=== PATIENT | male | born 1970 | race Caucasian/White ===

== ENCOUNTER 2022-05-09 11:57 | Emergency (ER) | payer SELFPAY ==
--- NOTE | ~2022-05-09 | XR_ITS ---
XR chest 2V DATE: 05/09/2022 12:24 INDICATION: Left anterior chest pain for 2 weeks. Chronic smoker. TECHNIQUE: 2 views COMPARISON: None FINDINGS: Bilateral hyperinflation with flattening of the diaphragm, consistent with COPD. No pulmona ry infiltrate or consolidation, pleural effusion or pulmonary vascular congestion or pneumothorax. Normal heart size. Mild aortic arch calcification. No hilar or mediastinal enlargement. Osteopenia. There is anterior wedging and loss of height of T8-1 lesser extent T9, chronic in appeara nce. Mild degenerative spurring of the thoracic spine. IMPRESSION: Bilateral hyperinflation consistent with COPD Reviewed, dictated and finalized at location A.
--- NOTE | 2022-05-09 11:58 | ED.URI ---
HPI - URI/Sore Throat General Chief Complaint: Chest Pain Stated Complaint: Chest Congestion Time Seen by Provider: 05/09/22 11:59 Source: patient and RN notes reviewed History of Present Illness HPI Narrative: Patient is a 51-year-old male who presents the urgent care with complaints of left-sided chest pain. Patient states its worse when he wakes up in the mornings. States that he is a chronic smoker and does have a slight cough but denies of any new cough, fever, nausea, vomiting or other upper respiratory complaints. Patient denies any shortness of breath but states that he does have difficulty taking deep breath at times. Patient states that he has this every year and he is treated with a Z-Christian, albuterol and steroids . Patient has not taken anything [id number] for his symptoms. Denies of any chronic heart conditions. No other acute complaints. No acute distress noted. Patient aware of the plan of care. Some parts of this dictation were generated by voice recognition software and may contain typographical and/or grammatical inaccuracies. Related Data Allergies Allergy/AdvReac Type Severity Reaction Status Date / Time No Known Allergies Allergy Verified 05/09/22 12:14 Review of Systems Review of Systems: CONSTITUTIONAL: Denies fever, chills, or sweats. EYES: Denies visual changes, redness, or discharge. ENT: Denies rhinorrhea, congestion, sore throat, or otalgia. CARDIOVASCULAR: Reports of left-sided chest pain RESPIRATORY: Denies cough or dyspnea. GASTROINTESTINAL: Denies abdominal pain, nausea, vomiting, or diarrhea. GENITOURINARY: Denies dysuria or hematuria. SKIN: Denies rash or itching. MUSCULOSKELETAL: Denies back pain, joint pain, or myalgia. NEUROLOGIC: Denies headache, numbness, or weakness. All other systems reviewed are negative, except as documented in HPI. PMFSH Comments At the time of my signature, I reviewed and agree with the nursing past medical, surgical, social, and family history. There is no relevant family history pertinent to the patient complaint. Exam Narrative: GENERAL: This is a well-nourished, well-developed patient, in no apparent distress. HEAD: normocephalic, atraumatic. EYES: PERRL. Sclera clear/white. Vision is grossly intact. EARS: External ears normal, auditory canals clear and without drainage, TMs normal without perforation. Hearing grossly intact. NOSE: External nose normal with no obvious nasal discharge, nares without redness, no rhinorrhea. THROAT: Mucous membranes moist, posterior pharynx clear. Moderate postnasal drainage NECK: Neck supple CARDIOVASCULAR: Regular rate and rhythm without murmurs, gallops, or rubs. RESPIRATORY: Crackles without wheezes, rales, or rhonchi. SKIN: warm, intact with no suspicious lesions or rash, good texture and turgor. NEURO: awake, alert, and oriented to person, place and time. There were no obvious focal neurologic abnormalities. EXTREMITIES: No clubbing, cyanosis, or edema. Course Course Level of Care: Express Care Visit Vital Signs Vital signs: Vital Signs Temperature 98.5 F 05/09/22 12:08 Pulse Rate 96 05/09/22 12:08 Respiratory Rate 20 05/09/22 12:08 Blood Pressure 161/108 H 05/09/22 12:08 Pulse Oximetry 98 05/09/22 12:08 Oxygen Delivery Room Air 05/09/22 12:08 Temperature 98.5 F 05/09/22 12:17 Pulse Rate 96 05/09/22 12:17 Respiratory Rate 20 05/09/22 12:17 Blood Pressure 161/108 H 05/09/22 12:17 Pulse Oximetry 98 05/09/22 12:17 Oxygen Delivery Room Air 05/09/22 12:17 Reviewed-patient is informed that they may have pre-hypertension or hypertension based on a blood pressure reading in the department. I recommend the patient call the primary care provider listed on their discharge instructions or a physician of their choice this week to arrange follow-up for further evaluation of possible pre-hypertension or hypertension. Repeat BP 148/90 MDM - URI/Sore Throat MDM Narrative Me
[2022-05-09 12:08] VITALS: BP 161/108; PULSE 96; RESP 20; TEMP 36.9; O2SAT 98
[2022-05-09 12:15] VITALS: BP 148/90
[2022-05-09 12:17] VITALS: BP 161/108; PULSE 96; RESP 20; TEMP 36.9; O2SAT 98
--- NOTE | 2022-05-09 12:17 | ECG_ITS ---
Measurements Intervals [place] Rate: 79 P: 65 [place]: 143 QRS: -9 QRSD: 78 T: 38 QT: 360 QTc: 413 Interpretive Statements SINUS RHYTHM POSSIBLE LEFT ATRIAL ENLARGEMENT DELAYED PRECORDIAL R/S TRANSITION CONSIDER INFERIOR INFARCT, AGE INDETERMINATE BASELINE WANDER- AVR, AVL, AVF ABNORMAL ECG Electronically Signed On 05-09-2022 23:03:17 CDT by Moisés Cisneros D.O.
== END 2022-05-09 13:08 | disposition home or self-care (01) ==
PROVIDERS: Emergency Provider Nurse Practitioner Family
DX: J44.9 Chronic obstructive pulmonary disease, unspecified (principal)
CPT/HCPCS: 71046; 93005; 99213; G0463